=== PATIENT | female | born 1985 | race African-American/Black ===

== ENCOUNTER 2016-10-27 22:27 | Inpatient (IN) | payer BC, OTHER ==
[~2016-10-27] VITALS: Ht 165.1 cm; Wt 91.0 kg
[~2016-10-27 22:27] MED LIST: ANAPROX DS550 MG OR; AVELOX400 MG OR; CIPRO500 MG OR; NASONEX50 MCG/AC; NO HOME MEDS; PERCOCET 5/325M1 TAB OR; VICODIN ES1 TAB OR
[2016-10-27] MEDS ORDERED: AMOXICILLIN875 MG PO (23:06)
[2016-10-27] MEDS ORDERED: [UNRECOGNIZED DRUG - OTHER] AD (23:07)
[2016-10-28] LABS: HEMATOCRIT 35.1 % (37.0-47.0); HEMOGLOBIN 11.4 g/dl (12.0-16.0); IMMATURE GRANULOCYTES 0.7 % (0.0-1.0); MEAN CELL VOLUME 88.6 fL CALC (80.0-100.0); MEAN CORPUSCULAR HGB 28.8 pG CALC (26.0-32.0); MEAN CORPUSCULAR HGB CONC 32.5 g/L CALC (32.0-36.0); NEUT# 11.45 thou/uL (2.00-7.15); RED BLOOD COUNT 3.96 mill/uL (4.20-5.60); RED CELL DISTRI WIDTH 14.9 % (11.5-15.5)
[2016-10-28 01:27] LABS: ALBUMIN 3.2 g/dL (3.2-5.0); ALKALINE PHOSPHATASE 130 u/l (38-126); ANION GAP 13 (6-22 (CALC)); BILIRUBIN, TOTAL 0.7 mg/dL (0.0-1.4); BUN 6 mg/dL (7-17); BUN/CREATININE RATIO 12 (12-20 (CALC)); CALCIUM 9.6 mg/dL (8.4-10.2); CARBON DIOXIDE 23 mmol/l (22-30); CHLORIDE 103 mmol/l (95-108); CREATININE 0.6 mg/dL (0.5-1.0); GFR > 60 ML/MIN (>=60 (CALC)); GFR FOR AFR.AMER. > 60 ML/MIN (>=60 (CALC)); GLUCOSE 95 mg/dL (65-105); SGOT/AST 16 u/l (14-36); SGPT/ALT 21 u/l (9-52); SODIUM 135 mmol/l (137-146); TOTAL PROTEIN 6.5 g/dL (6.3-8.2)
[2016-10-28 02:45] VITALS: BP 128/88
[2016-10-28 08:22] VITALS: BP 123/87
[2016-10-28 15:00] VITALS: BP 112/78
[2016-10-28 19:21] VITALS: BP 125/84
[2016-10-29 04:37] VITALS: BP 104/66
[2016-10-29 05:32] LABS: ANION GAP 11 (6-22 (CALC)); BUN 7 mg/dL (7-17); BUN/CREATININE RATIO 14 (12-20 (CALC)); CALCIUM 9.5 mg/dL (8.4-10.2); CARBON DIOXIDE 22 mmol/l (22-30); CHLORIDE 105 mmol/l (95-108); CREATININE 0.5 mg/dL (0.5-1.0); GFR > 60 ML/MIN (>=60 (CALC)); GFR FOR AFR.AMER. > 60 ML/MIN (>=60 (CALC)); GLUCOSE 75 mg/dL (65-105); HEMATOCRIT 32.7 % (37.0-47.0); HEMOGLOBIN 10.8 g/dl (12.0-16.0); IMMATURE GRANULOCYTES 0.9 % (0.0-1.0); MEAN CELL VOLUME 89.6 fL CALC (80.0-100.0); MEAN CORPUSCULAR HGB 29.6 pG CALC (26.0-32.0); NEUT# 7.07 thou/uL (2.00-7.15); POTASSIUM 4.3 mmol/l (3.5-5.1); RED BLOOD COUNT 3.65 mill/uL (4.20-5.60); RED CELL DISTRI WIDTH 14.6 % (11.5-15.5); SODIUM 135 mmol/l (137-146)
[2016-10-29 08:10] VITALS: BP 130/87
[2016-10-29 16:53] VITALS: BP 123/88
[2016-10-29 19:40] VITALS: BP 121/83
== END 2016-10-29 23:18 | disposition short-term general hospital (02) | DRG 781 ==
LOC: ED 22:27 → ED-I 10-28 02:03 → ED 10-28 02:05 → MS2 10-28 02:06 → UNDODEPER 11-01 02:38
PROVIDERS: Emergency Medicine; ADMIT Internal Medicine; ATTEND Internal Medicine
DX: O98.813 Other maternal infectious and parasitic diseases complicating pregnancy, third trimester (principal); H70.001 Acute mastoiditis without complications, right ear; H66.91 Otitis media, unspecified, right ear; H60.91 Unspecified otitis externa, right ear; O24.410 Gestational diabetes mellitus in pregnancy, diet controlled; B96.5 Pseudomonas (aeruginosa) (mallei) (pseudomallei) as the cause of diseases classified elsewhere; Z3A.32 32 weeks gestation of pregnancy
CPT/HCPCS: G0378; J0692; J3370

== ENCOUNTER 2018-12-20 21:02 | Emergency (ER) | payer BC ==
[~2018-12-20] VITALS: Ht 165.1 cm; Wt 85.9 kg
[~2018-12-20 21:02] MED LIST changes: +AMOXICILLIN875 MG PO; +[UNRECOGNIZED DRUG - OTHER] AD
[2018-12-20] MEDS ORDERED: APPLE CIDER VI300 MG PO (21:21)
[2018-12-20 21:41] LABS: URINE BILIRUBIN - DIPSTICK NEGATIVE (NEGATIVE); URINE BLOOD DIPSTICK LARGE (NEGATIVE); URINE COLOR YELLOW; URINE GLUCOSE - DIPSTICK NEGATIVE (NEGATIVE); URINE KETONE NEGATIVE (NEGATIVE); URINE LEUK ESTERASE SMALL (NEGATIVE); URINE NITRITE - DIPSTICK POSITIVE (Negative); URINE PROTEIN - DIPSTICK 100 mg/dL (NEG-TRACE); URINE SPECIFIC GRAVITY 1.025; URINE UROBILINOGEN - DIPSTICK 0.2 E.U./dL (0.2)
[2018-12-20 21:42] LABS: URINE EPITHELIAL CELLS MODERATE EPI/hpf (0-FEW); URINE RBC 25-50 RBC/hpf (0-5)
[2018-12-20 21:43] LABS: URINE BACTERIA MANY hpf
[2018-12-20] MEDS ORDERED: BACTRIM DS1 TAB PO (22:02)
[2018-12-20 22:27] VITALS: BP 167/115
== END 2018-12-20 22:27 | disposition home or self-care (01) | DRG 690 ==
LOC: ED 21:02
PROVIDERS: Family Medicine
DX: N30.00 Acute cystitis without hematuria (principal); B96.20 Unspecified Escherichia coli [E. coli] as the cause of diseases classified elsewhere